=== PATIENT | female | born 1945 | race Caucasian/White ===

== ENCOUNTER → 2017-12-13 13:32 | Outpatient (CLI) | payer MEDICARE, SELFPAY ==
--- NOTE | 2017-12-13 | DI.ECHO.S_ITS ---
[facility]---------+ [facility] +---------+ : : [address] : : : : [id number] : : : : Phone: [phone]+ Echocardiogram Report + + :Name: MADAN CHA Study Date: 12/13/2017 Height: 67 in : :[facility] Exam Location: [facility] Weight: 138 lb : : Gender: Female BSA: 1.7 m2 : :: 1945 Age: 72 yrs BP: 128/60 mmHg: :Reason For Study: AFIB : : Performed By: Claudy Luna : :Referring: LIYA LOCKE : + + Interpretation Summary The patient was in atrial fibrillation with controlled ventricular rate during the exam. Normal left ventricle size with ejection fraction 60-65%. Severely dilated left atrium. Moderately dilated right atrium. Mild aortic valve sclerosis. Moderate mitral regurgitation. Mild tricuspid regurgitation. Procedure: A two-dimensional transthoracic echocardiogram with color flow and Doppler was performed. The study quality was technically adequate. There is no prior echocardiogram noted for this patient. The patient was in atrial fibrillation with controlled ventricular rate during the exam. The patient had a heart rate of 61-102 beats per minute. Left Ventricle: The left ventricle is normal in size. There is normal left ventricular wall thickness. The ejection fraction is estimated to be 60-65%. There are no focal wall motion abnormalities. Diastolic function could not be accurately assessed due to atrial fibrillation. Right Ventricle: The right ventricle is normal in size and function. Atria: The left atrium is severely dilated. The right atrium is moderately dilated. The interatrial septum is intact with no evidence for an atrial septal defect. Mitral Valve: The mitral valve is grossly normal. There is moderate mitral regurgitation. Aortic Valve: The aortic valve is trileaflet. The aortic valve opens well. There is mild aortic valve sclerosis. No aortic regurgitation is present. Tricuspid Valve: The tricuspid valve is normal in structure and function. There is mild tricuspid regurgitation. The right ventricular systolic pressure is estimated at 28 mmHg assuming a right atrial pressure of 3 mm Hg. Pulmonic Valve: The pulmonic valve is normal in structure and function. There is trace pulmonic regurgitation. Great Vessels: The aortic root is normal size. The dimensions of the ascending aorta are normal. The pulmonary artery is normal size. The IVC is of normal diameter and collapses greater than 50% with a sniff. This suggests a low right atrial pressure of 3 mm Hg. Pericardium/ Pleura There is no pericardial effusion. There is no pleural effusion. MMode/2D Measurements & Calculations LVIDd: 4.1 cm Ao root diam: 4.1 cm LVIDs: 2.8 cm Aortic Jxn: 3.3 cm FS: 32.3 % asc Aorta Diam: 3.4 cm EPSS: 0.42 cm Ao Arch Diam (Prox Trans): 2.4 cm IVSd: 0.83 cm LVPWd: 0.84 cm LV gardner. diameter/BSA (cm/m^2): 2.4 LV sys. diameter/BSA (cm/m^2): 1.6 LA dimension: 3.9 cm RA long axis: 6.9 cm LA A2 area: 29.3 cm2 RA area: 24.9 cm2 LA A4 area: 26.5 cm2 RA vol: 75.8 ml LA length (vol): 7.2 cm RA : 43.9 ml/m2 LA vol: 91.2 ml IVC diam: 0.99 cm LA vol index: 52.8 ml/m2 Doppler Measurements & Calculations Ao V2 max: 87.2 cm/sec MV E max dante: 108.7 cm/sec Ao V2 mean: 64.9 cm/sec MV A max dante: 0.37 cm/sec Ao max P.1 mmHg MV E/A: 296.6 Ao mean P.8 mmHg Med Peak E' Dante: 7.0 cm/sec Ao V2 VTI: 15.3 cm E/E' med: 15.6 MV dec time: 0.18 sec MR ERO: 0.12 cm2 TR max dante: 249.4 cm/sec MR flow rate: 68.5 cm3/sec TR max P.9 mmHg MR PISA radius: 0.54 cm PA V2 max: 68.6 cm/sec PA V2 mean: 52.4 cm/sec PA mean P.2 mmHg PA pr(Accel): 26.6 mmHg PA Accel Time: 0.11 sec Electronically signed by: Pooja Martinez on Reading Physician:12/13/2017 05:02 PM
== END ==
PROVIDERS: Family Provider Physician Assistant Medical; PCP Physician Assistant Medical; Visit Provider Physician Assistant Medical
DX: I48.91 Unspecified atrial fibrillation (principal)
CPT/HCPCS: 93306

== ENCOUNTER → 2022-06-15 10:58 | Outpatient (CLI) | payer MEDICARE, SELFPAY ==
--- NOTE | 2022-06-15 11:02 | DI.ECHO.S_ITS ---
[facility]---------+ [facility] +---------+ : : [address] : : : : [id number] : : : : Phone: [phone]+ Echocardiogram Report + + :Name: MADAN CHA Study Date: 06/15/2022 Height: 68 in : :[facility] ReadingLocation: Weight: 135 lb : : Gender: Female BSA: 1.7 m2 : :: 1945 Age: 76 yrs BP: 133/85 mmHg: :Reason For Study: SHORTNESS OF BREATH : :Ordering Physician: Tomer DELGADOformed By: Kaitlynn Mayer : :Referring: SUZETTE DELGADO : + + Interpretation Summary The ejection fraction is estimated to be 55-60%. There is severe biatrial enlargement. There is mild to moderate mitral regurgitation. There is prolapse of the posterior mitral valve leaflet(s).-mild There is mild to moderate tricuspid regurgitation. The right ventricular systolic pressure is estimated to be at least 34 mmHg based on an estimated right atrial pressure of 8 mm Hg. Procedure: A two-dimensional transthoracic echocardiogram with color flow and Doppler was performed. Comparison is made with the echocardiogram of 12/13/2017. The study quality was technically good. The heart rate ranged between 46-80 bpm during the study. Left Ventricle: The left ventricle is normal in size and wall thickness. The ejection fraction is estimated to be 55-60%. Left ventricular wall motion is normal. Right Ventricle: The right ventricle is normal in size and function. Atria: The left atrium is severely dilated. There is severe biatrial enlargement. The right atrium is severely dilated. There is no Doppler evidence for an interatrial shunt. Mitral Valve: There is prolapse of the posterior mitral valve leaflet(s). There is mild to moderate mitral regurgitation. Aortic Valve: The aortic valve is trileaflet. The aortic valve opens well. There is no aortic valve stenosis. No aortic regurgitation is present. Tricuspid Valve: The tricuspid valve leaflets are thin and pliable. There is mild to moderate tricuspid regurgitation. The right ventricular systolic pressure is estimated to be at least 34 mmHg based on an estimated right atrial pressure of 8 mm Hg. Pulmonic Valve: The pulmonic valve is not well seen, but is grossly normal. There is no pulmonic valvular regurgitation. Great Vessels: The aortic root is moderately dilated. The dimensions of the ascending aorta are normal. The IVC is of normal diameter and collapses less than 50% with a sniff. This suggests a right atrial pressure of 8 mm Hg. Pericardium/ Pleura There is no pericardial effusion. There is no pleural effusion. MMode/2D Measurements & Calculations LVIDd: 4.2 cm LVOT diam: 2.1 cm LVIDs: 2.7 cm Ao root diam: 4.3 cm FS: 36.2 % asc Aorta Diam: 3.1 cm IVSd: 0.73 cm Ao Arch Diam (Prox Trans): 2.4 cm LVPWd: 0.73 cm LV gardner. diameter/BSA (cm/m^2): 2.4 LV sys. diameter/BSA (cm/m^2): 1.5 LA A2 area: 36.1 cm2 RA long axis: 6.8 cm LA A4 area: 27.8 cm2 RA area: 26.4 cm2 LA length (vol): 6.7 cm RA vol: 87.3 ml LA vol: 126.8 ml RA : 50.5 ml/m2 LA vol index: 73.3 ml/m2 IVC diam: 1.5 cm RVD1 (basal): 3.5 cm RVD2 (mid): 2.8 cm TAPSE: 1.8 cm Doppler Measurements & Calculations Ao V2 max: 88.8 cm/sec LVOT Max Dante: 62.0 cm/sec Ao V2 mean: 61.4 cm/sec LV V1 max P.5 mmHg Ao max P.2 mmHg LV V1 VTI: 14.0 cm Ao mean P.7 mmHg BAKARI(I,D): 2.6 cm2 Ao V2 VTI: 18.2 cm BAKARI(V,D): 2.4 cm2 sev ratio: 0.77 BAKARI indexed to BSA (cm^2/m^2): 1.5 MV E max dante: 93.3 cm/sec TR max dante: 254.8 cm/sec MV A max dante: 2.1 cm/sec TR max P.0 mmHg MV E/A: 45.0 PA V2 max: 52.5 cm/sec Med Peak E' Dante: 6.1 cm/sec PA V2 mean: 36.3 cm/sec E/E' med: 15.3 PA mean P.60 mmHg Lat Peak E' Dante: 7.4 cm/sec PA pr(Accel): 25.9 mmHg E/E' lat: 12.7 E/e' average: 14.0 MV dec time: 0.17 sec SV(LVOT): 48.2 ml Reading Physician:02:17 PM
== END ==
PROVIDERS: Family Provider Physician Assistant Medical; PCP Internal Medicine; Referring Provider Internal Medicine Cardiovascular Disease; Visit Provider Internal Medicine Cardiovascular Disease
DX: I08.0 Rheumatic disorders of both mitral and aortic valves (principal); I77.810 Thoracic aortic ectasia; R06.02 Shortness of breath
CPT/HCPCS: 93306